=== PATIENT | female | born 1975 ===

== ENCOUNTER 2017-10-16 09:38 | Emergency (ER) | payer BC ==
--- NOTE | 2017-10-16 09:40 | ED PDOC ---
Arrival/HPI - General Historian: Patient <Ibrahima Juan - Last Filed: 10/16/17 13:04> <Abraham Mitchell - Last Filed: 10/16/17 17:00> - General Time Seen by Provider: 10/16/17 09:39 - History of Present Illness Narrative History of Present Illness (Text): 10/16/17 09:39 42 y/o female, pmh including htn and hypothyroidism, nkda, c/o lower suprapubic discomfort for the past 2 days. Aching pain, on and off, associated with lower back pain, no numbness or tingling, 5/10, no chest pain or shortness of breath, no flank pain, no rash, no palpitation, no other medical or psychological complaints. (Ibrahima Juan) Past Medical History - Provider Review Nursing Documentation Reviewed: Yes <Ibrahima Juan - Last Filed: 10/16/17 13:04> - Provider Review Nursing Documentation Reviewed: Yes <Abraham Mitchell - Last Filed: 10/16/17 17:00> Family/Social History - Physician Review Nursing Documentation Reviewed: Yes Family/Social History: Unknown Family HX <Ibrahima Juan - Last Filed: 10/16/17 13:04> Allergies/Home Meds <Ibrahima Juan - Last Filed: 10/16/17 13:04> <Abraham Mitchell - Last Filed: 10/16/17 17:00> Allergies/Adverse Reactions: Allergies No Known Allergies Allergy (Verified 10/16/17 09:50) Home Medications: Home Meds Medication Instructions Recorded Confirmed Levothyroxine 0.05 mg PO DAILY 10/16/17 10/16/17 Lisinopril [Zestril] 5 mg PO DAILY 10/16/17 10/16/17 Review of Systems - Review of Systems Constitutional: absent: Fatigue, Fevers Eyes: absent: Vision Changes ENT: absent: Hearing Changes Respiratory: absent: SOB, Cough Cardiovascular: absent: Chest Pain Gastrointestinal: Other (+suprapubic pain). absent: Abdominal Pain, Nausea, Vomiting Skin: absent: Rash, Pruritis Neurological: absent: Headache, Dizziness Psychiatric: absent: Anxiety, Depression, Suicidal Ideation <Ibrahima Juan - Last Filed: 10/16/17 13:04> Physical Exam Vital Signs Reviewed: Yes Temperature: Afebrile Blood Pressure: Normal Pulse: Regular Respiratory Rate: Normal Appearance: Positive for: Well-Appearing, Non-Toxic, Comfortable Pain Distress: Moderate Mental Status: Positive for: Alert and Oriented X 3 - Systems Exam Head: Present: Atraumatic, Normocephalic Pupils: Present: PERRL Extroacular Muscles: Present: EOMI Conjunctiva: Present: Normal Mouth: Present: Moist Mucous Membranes Neck: Present: Normal Range of Motion Respiratory/Chest: Present: Clear to Auscultation, Good Air Exchange. No: Respiratory Distress, Accessory Muscle Use Cardiovascular: Present: Regular Rate and Rhythm, Normal S1, S2. No: Murmurs Abdomen: Present: Other (+suprapubic tenderness). No: Tenderness, Distention, Peritoneal Signs, Rebound, Guarding Genitourinary/Pelvic Exam: Present: Other (Pt. declined) Back: Present: Normal Inspection. No: CVA Tenderness, Midline Tenderness, Paraspinal Tenderness Upper Extremity: Present: Normal Inspection. No: Cyanosis, Edema Lower Extremity: Present: Normal Inspection. No: Edema Neurological: Present: GCS=15, CN II-XII Intact, Speech Normal Skin: Present: Warm, Dry, Normal Color. No: Rashes Psychiatric: Present: Alert, Oriented x 3, Normal Insight, Normal Concentration <Ibrahima Juan - Last Filed: 10/16/17 13:04> Vital Signs Temp Pulse Resp BP Pulse Ox 10/16/17 13:31 98.1 F 87 17 134/88 98 10/16/17 13:15 87 17 134/88 98 10/16/17 12:09 88 17 139/88 97 10/16/17 09:51 98.4 F 88 18 141/88 99 Medical Decision Making - Lab Interpretations I have reviewed the lab results: Yes - RAD Interpretation Precision Devices Inspector/Tester: Radiologist <Ibrahima Juan - Last Filed: 10/16/17 13:04> <Abraham Mitchell - Last Filed: 10/16/17 17:00> ED Course and Treatment: 10/16/17 10:11 -labs/ua -transvaginal sonogram -IV/toradol -Observe and reassess 10/16/17 13:05 -Urine hcg is negative -Labs are non-significant -UA show +UTI which she admits urinary frequency now. -Transvaginal sonogram show Cystic fluid collection/ cyst interposed between endometrial echo complex and myometrium. Pt. refused repeat sonogram. -Pt. stated that her symptoms resolved with toradol, wants to be discharged home , stated that she has obgyn follow up tomorrow, advised to come back to the ER for further care if pain persist. -Discharge home with motrin, macrobid, bed rest, follow up with your own pmd and obgyn within 2 days, return to the ER for any new or worsening signs or symptoms. (Ibrahima Juan) - Lab Interpretations Lab Results: 10/16/17 10:00 10/16/17 10:00 Lab Results 10/16/17 10:09: Urine Color Light yellow, Urine Appearance Slight-cloudy, Urine pH 6.5, Ur Specific [place] 1.020, Urine Protein Trace H, Urine Glucose (UA) Negative, Urine Ketones Negative, Urine Blood Large H, Urine Nitrate Negative, Urine Bilirubin Negative, Urine Urobilinogen 0.2, Ur Leukocyte Esterase Trace H , Urine RBC 25 - 30, Urine WBC 2 - 5, Ur Epithelial Cells Many, Urine Bacteria Many 10/16/17 10:00: WBC 10.9, RBC 4.17, Hgb 12.2, Hct 36.4, MCV 87.3, MCH 29.3, MCHC 33.5, RDW 14.0, Plt Count 229, MPV 10.8, Gran % 82.1 H, Lymph % (Auto) 13.2 L, [place] % (Auto) 4.0, Eos % (Auto) 0.6 L, Baso % (Auto) 0.1, Gran # 8.93 H , Lymph # (Auto) 1.4, [place] # (Auto) 0.4, Eos # (Auto) 0.1, Baso # (Auto) 0.01 10/16/17 10:00: Sodium 142, Potassium 3.6, Chloride 106, Carbon Dioxide 24, Anion Gap 16, BUN 11, Creatinine 0.5 L, Est GFR ( Amer) > 60, Est GFR ( Non-Af Amer) > 60, Random Glucose 126 H, Calcium 8.8, Total Bilirubin 0.6, AST 28, ALT 36, Alkaline Phosphatase 87, Total Protein 8.1, Albumin 4.4, Globulin 3.7, Albumin/Globulin Ratio 1.2, Lipase 65 - RAD Interpretation Radiology Orders: 10/16/17 09:55 TRANSVAGINAL [US] Stat HISTORY: Ovarian cysts. Negative test (concurrent with this examination). Menstrual status: LMP one 9. COMPARISON: None available. TECHNIQUE: Transvaginal only. Real -time technique with 2D, duplex and color Doppler FINDINGS: UTERUS: Measures 6.6 x 9.3 cm. Normal in size and appearance. ENDOMETRIUM: Cystic fluid collection Inseparable from the endometrial echo complex measuring 1.2 x 1.8 cm. Maximal endometrial thickness 13.5 mm. CERVIX: No cervical abnormality identified. Closed cervix 3.1 cm. RIGHT OVARY: Not visualized LEFT OVARY: Not visualized FREE FLUID: No significant free fluid noted. OTHER FINDINGS: None. IMPRESSION: Cystic fluid collection/ cyst interposed between endometrial echo complex and myometrium. Limitations of the current examination: Nonvisualization of the adnexa. (Ibrahima Juan) - Medication Orders Current Medication Orders: Discontinued Medications Sodium Chloride (Sodium Chloride 0.9%) 1,000 mls @ 100 mls/hr IV .Q10H ZBIGNIEW Last Admin: 10/16/17 10:09 Dose: 100 mls/hr eMAR Start Stop Document 10/16/17 10:09 [facility] (Rec: 10/16/17 10:09 [facility] [id number]) Intravenous Solution Start Date 10/16/17 Start Time 10:09 Ketorolac Tromethamine (Toradol) 30 mg IVP STAT STA Stop: 10/16/17 09:56 Last Admin: 10/16/17 10:09 Dose: 30 mg MAR Pain Assessment Document 10/16/17 10:09 [facility] (Rec: 10/16/17 10:09 [facility] [id number]) Pain Reassessment Is this a pain reassessment? No Sleep Is patient sleeping during reassessment? No Presence of Pain Presence of Pain Yes Location Pain Location Body Site Abdomen Description Intensity of Pain at present 6 IVP Administration Document 10/16/17 10:09 [facility] (Rec: 10/16/17 10:09 [facility] [id number]) Charges for Administration # of IVP Administrations 1 - PA / SUPERVISORY TRAINING SPECIALIST / Resident Statement MD/DO has reviewed & agrees with the documentation as recorded. <Juan,Ibrahima Q - Last Filed: 10/16/17 13:04> - PA / SUPERVISORY TRAINING SPECIALIST / Resident Statement MD/DO has reviewed & agrees with the documentation as recorded. <Shelton MitchellGisellCeferinogiancarlo - Last Filed: 10/16/17 17:00> Disposition/Present on Arrival - Present on Arrival Any Indicators Present on Arrival: No History of DVT/PE: No History of Uncontrolled Diabetes: No Urinary Catheter: No History of Decub. Ulcer: No - Disposition Have Diagnosis and Disposition been Completed?: Yes Disposition Time: 10:11 Patient Plan: Discharge <Ibrahima Juan Q - Last Filed: 10/16/17 13:04> <StephenAnithaJoyce - Last Filed: 10/16/17 17:00> - Disposition Diagnosis: Cystitis Disposition: HOME/ ROUTINE Condition: IMPROVED Additional Instructions: -Discharge home with motrin, macrobid, bed rest, follow up with your own pmd and obgyn within 2 days, return to the ER for any new or worsening signs or symptoms. Prescriptions: Ibuprofen [Motrin Tab] 600 mg PO QID PRN #30 tab PRN Reason: Other Nitrofurantoin Macrocrystals [Macrobid] 100 mg PO BID #14 cap Referrals: Wrad Mooney MD [Primary Care Provider] - Follow up with primary Pérez Alvarez MD [Staff Provider] - Follow up with primary Brandt Lowe MD [Staff Provider] - Follow up with primary Forms: WORK NOTE
[2017-10-16] MEDS ORDERED: Sodium Chloride 0.9% 1,000 ML IV SCH (10:00)
[2017-10-16 10:16] LABS: BASO # 0.01 K/mm3 (0.0-2.0); BASO % 0.1 % (0.0-3.0); EOS # 0.1 (0.0-0.7); EOS % 0.6 % (1.5-5.0); GRAN # 8.93 (1.4-6.5); GRAN % 82.1 % (50.0-68.0); HEMOGLOBIN 12.2 g/dL (12.0-16.0); LYMPH # 1.4 (1.2-3.4); LYMPH % 13.2 % (22.0-35.0); MEAN CELL VOLUME 87.3 fl (80.0-105.0); MEAN CORPUSCULAR HEMOGLOBIN 29.3 pg (25.0-35.0); MEAN CORPUSCULAR HGB CONC 33.5 g/dl (31.0-37.0); MEAN PLATELET VOLUME 10.8 fl (7.0-11.0); MONO # 0.4 (0.1-0.6); RBC 4.17 10^6/uL (3.5-6.1); WHITE BLOOD COUNT 10.9 10^3/ul (4.5-11.0)
[2017-10-16 10:16] LABS: PH,URINE 6.5 (4.7-8.0); URINE APPEARANCE SLIGHT-CLOUDY (CLEAR); URINE BILIRUBIN NEGATIVE (NEGATIVE); URINE BLOOD LARGE (NEGATIVE); URINE COLOR LIGHT YELLOW (YELLOW); URINE GLUCOSE (UA) NEGATIVE (NEGATIVE); URINE LEUKOCYTE ESTERASE TRACE Leu/uL (NEGATIVE); URINE PROTEIN TRACE mg/dL (<30 mg/dL); URINE UROBILINOGEN 0.2 E.U./dL (<1 E.U./dL)
[2017-10-16 10:19] LABS: URINE BACTERIA MANY (NEG); URINE EPITHELIAL CELLS MANY /hpf (0-5); URINE RBC 25 - 30 /hpf (0-2)
[2017-10-16 10:30] LABS: ALB/GLOB RATIO 1.2 (1.1-1.8); ALBUMIN 4.4 g/dL (3.0-4.8); ALT/SGPT 36 U/L (7-56); AST/SGOT 28 U/L (14-36); BLOOD UREA NITROGEN 11 mg/dL (7-21); CALCIUM 8.8 mg/dL (8.4-10.5); GFR AFRICAN-AMERICAN > 60; GFR NON-AFRICAN AMERICAN > 60; LIPASE 65 U/L (23-300)
[2017-10-16 12:10] VITALS: RESP 17
--- NOTE | 2017-10-16 12:40 | US ---
HISTORY: Ovarian cysts. Negative test (concurrent with this examination). Menstrual status: LMP one 9. COMPARISON: None available. TECHNIQUE: Transvaginal only. Real -time technique with 2D, duplex and color Doppler FINDINGS: UTERUS: Measures 6.6 x 9.3 cm. Normal in size and appearance. ENDOMETRIUM: Cystic fluid collection Inseparable from the endometrial echo complex measuring 1.2 x 1.8 cm. Maximal endometrial thickness 13.5 mm. CERVIX: No cervical abnormality identified. Closed cervix 3.1 cm. RIGHT OVARY: Not visualized LEFT OVARY: Not visualized FREE FLUID: No significant free fluid noted. OTHER FINDINGS: None. IMPRESSION: Cystic fluid collection/ cyst interposed between endometrial echo complex and myometrium. Limitations of the current examination: Nonvisualization of the adnexa.
[2017-10-16 13:16] VITALS: BP 134/88; PULSE 87; O2SAT 98
[2017-10-16 13:32] VITALS: TEMP 98.1
== END 2017-10-16 13:36 | disposition home or self-care (01) ==
LOC: ED 09:38
DX: N30.90 Cystitis, unspecified without hematuria (principal)
CPT/HCPCS: 76830; 80053; 81001; 83690; 85025; 87086; 96374; 99284; J1885; J7040

== ENCOUNTER 2018-01-10 11:19 | Emergency (ER) | payer BC ==
[2018-01-10 11:26] VITALS: BMI 30.3
[2018-01-10 11:27] VITALS: TEMP 98
[2018-01-10] MEDS ORDERED: Morphine 2 mg/ml ISec IVP STA (11:51)
[2018-01-10] MEDS ORDERED: Sodium Chloride 0.9% 1,000 ML IV STA (11:52)
[2018-01-10 11:59] LABS: URINE APPEARANCE CLEAR (CLEAR); URINE BILIRUBIN NEGATIVE (NEGATIVE); URINE BLOOD MODERATE (NEGATIVE); URINE COLOR YELLOW (YELLOW); URINE GLUCOSE (UA) NEGATIVE (NEGATIVE); URINE LEUKOCYTE ESTERASE NEGATIVE Leu/uL (NEGATIVE); URINE PROTEIN NEGATIVE mg/dL (<30 mg/dL); URINE UROBILINOGEN 0.2 E.U./dL (<1 E.U./dL)
--- NOTE | 2018-01-10 12:07 | ED PDOC ---
Arrival/HPI - General Chief Complaint: Abdominal Pain Time Seen by Provider: 01/10/18 11:47 Historian: Patient, Family (niece translates in nauruan for patient) EM Caveat: Acuity of Condition - History of Present Illness Narrative History of Present Illness (Text): 01/10/18 11:45 A 42 y/o F w/ h/o fibroids s/p myomectomy, hypertension and hypothyroidism, presents to the emergency department complaining of cramping lower abdominal pain radiating around to the lower back. Patient reports pain as cramping sensation. Notes also experiencing some nausea associated with the pain. She states pain also sometimes radiates down left leg. Patient denies nausea, vomiting, diarrhea, chest pain, shortness of breath, any urinary symptoms, or any other complaints at this time. LMP was 12/06/17. PMD: Dr. Wrad Mooney 01/11/18 11:01 Time/Duration: Prior to Arrival Symptom Onset: Sudden Symptom Course: Worsening Quality: Aching, Cramping Severity Level: 9 Activities at Onset: Rest Context: Home Past Medical History - Provider Review Nursing Documentation Reviewed: Yes - Travel History Have you recently traveled outside [place] w/in the past 3 mons?: Yes If Yes, travel location?: October; [place] - Infectious Disease Hx of Infectious Diseases: None - Reproductive Menopause: No Currently : No - Cardiac Hx Cardiac Disorders: Yes Hx Hypertension: Yes - Pulmonary Hx Respiratory Disorders: No (denies) - Neurological Hx Neurological Disorder: No (denies) - HEENT Hx HEENT Disorder: (denies) - Renal Hx Renal Disorder: (denies) - Endocrine/Metabolic Hx Endocrine Disorders: Yes Hx Hypothyroidism: Yes - Hematological/Oncological Hx Blood Disorders: (denies) - Integumentary Hx Dermatological Disorder: (denies) - Musculoskeletal/Rheumatological Hx Musculoskeletal Disorders: (denies) - Gastrointestinal Hx Gastrointestinal Disorders: (denies) - Genitourinary/Gynecological Hx Genitourinary Disorders: Yes Other/Comment: fibroids - Psychiatric Hx Psychophysiologic Disorder: (denies) Hx Substance Use: No - Surgical History Hx Thyroidectomy: Yes - Anesthesia Hx Anesthesia: Yes Family/Social History - Physician Review Nursing Documentation Reviewed: Yes Family/Social History: No Known Family HX Smoking Status: Never Smoked Hx Alcohol Use: No Hx Substance Use: No Allergies/Home Meds Allergies/Adverse Reactions: Allergies No Known Allergies Allergy (Verified 10/16/17 09:50) Home Medications: Home Meds Medication Instructions Recorded Confirmed Levothyroxine 0.05 mg PO DAILY 10/16/17 10/16/17 Lisinopril [Zestril] 5 mg PO DAILY 10/16/17 10/16/17 Review of Systems - Physician Review All systems were reviewed & negative as marked: Yes - Review of Systems Constitutional: absent: Fevers Respiratory: absent: SOB Cardiovascular: absent: Chest Pain Gastrointestinal: Abdominal Pain (radiating around to lumbar region), Nausea. absent: Diarrhea, Vomiting Genitourinary Female: absent: Dysuria, Frequency, Hematuria, Urine Output Changes Physical Exam Vital Signs Reviewed: Yes Vital Signs Temp Pulse Resp BP Pulse Ox 01/10/18 14:13 99 01/10/18 14:11 97 H 17 134/75 99 01/10/18 13:49 97 H 17 135/71 98 01/10/18 11:25 98 F 98 H 20 155/87 H 98 Temperature: Afebrile Blood Pressure: Normal Pulse: Regular Respiratory Rate: Normal Appearance: Positive for: Well-Appearing Pain Distress: None Mental Status: Positive for: Alert and Oriented X 3 - Systems Exam Head: Present: Atraumatic, Normocephalic Pupils: Present: PERRL Extroacular Muscles: Present: EOMI Conjunctiva: Present: Normal Mouth: Present: Moist Mucous Membranes Neck: Present: Normal Range of Motion Respiratory/Chest: Present: Clear to Auscultation, Good Air Exchange. No: Respiratory Distress, Accessory Muscle Use Cardiovascular: Present: Regular Rate and Rhythm, Normal S1, S2. No: Murmurs Abdomen: Present: Tenderness (tenderness to palpation to the suprapubic region) Back: Present: Normal Inspection Upper Extremity: Present: Normal Inspection. No: Cyanosis, Edema Lower Extremity: Present: Normal Inspection. No: Edema Neurological: Present: GCS=15, CN II-XII Intact, Speech Normal Skin: Present: Warm, Dry, Normal Color. No: Rashes Psychiatric: Present: Alert, Oriented x 3, Normal Insight, Normal Concentration Medical Decision Making ED Course and Treatment: 01/10/18 11:50 Impression: 42 year old female with abdominal cramping pain radiating to back and sometimes down left leg. Although the patient has been experiencing similar abdominal pain for an extended amount of time, the severity of this epsiode raises suspicion for acute pathology such as ectopic , which we will rule out. She will be treated with analgesics and monitored for any changes in disposition. Differential Diagnoses Includes but is Not Limited to: Ectopic Ovarian Cyst Endometriosis Plan: -- Transvaginal Ultrasound -- Labs -- Urinalysis -- Morphine -- IV Fluids -- Urine Culture -- Reassess and disposition Prior Visits: Notes and results from previous visits were reviewed. Patient was last seen here in the emergency department on 10/16/2017 for lower suprapubic abdominal discomfort. Patient was discharged home. Progress Notes: 01/10/2018 13:00 Patient offered pelvic exam in which she desired to defer to the her site medical director. She is comfortable at this time. Transvaginal Ultrasound IMPRESSION: Complex fluid in the endometrial cavity, likely old blood products. Otherwise unremarkable. Ovaries not visualized. Dictator: Stan Gunter MD 01/10/2018 1320 Findings of ultrasound discussed with patient who states she has an upcoming appointment with her site medical director this week. Highlighted the importance of immediate follow up with site medical director and explaining symptoms in detail for further evaluation. She demonstrates understanding. Scripts provided. She is stable for discharge. - Lab Interpretations Lab Results: 01/10/18 12:00 01/10/18 12:00 Lab Results 01/10/18 12:00: Beta HCG, Quant < 2.39 01/10/18 12:00: Sodium 141, Potassium 3.7, Chloride 103, Carbon Dioxide 26, Anion Gap 16, BUN 10, Creatinine 0.5 L, Est GFR ( Amer) > 60, Est GFR ( Non-Af Amer) > 60, Random Glucose 107, Calcium 9.0, Total Bilirubin 0.5, AST 25 , ALT 24, Alkaline Phosphatase 82, Total Protein 7.9, Albumin 4.2, Globulin 3.7 , Albumin/Globulin Ratio 1.1 01/10/18 12:00: WBC 11.6 H, RBC 4.09, Hgb 11.8 L, Hct 35.4 L, MCV 86.6, MCH 28.9 , MCHC 33.3, RDW 13.8, Plt Count 235, MPV 10.8, Gran % 87.5 H, Lymph % (Auto) 8.6 L, [place] % (Auto) 3.3, Eos % (Auto) 0.4 L, Baso % (Auto) 0.2, Gran # 10.18 H , Lymph # (Auto) 1.0 L, [place] # (Auto) 0.4, Eos # (Auto) 0.1, Baso # (Auto) 0.02 01/10/18 11:45: Urine Color Yellow, Urine Appearance Clear, Urine pH 7.0, Ur Specific [place] 1.010, Urine Protein Negative, Urine Glucose (UA) Negative, Urine Ketones Negative, Urine Blood Moderate H, Urine Nitrate Negative, Urine Bilirubin Negative, Urine Urobilinogen 0.2, Ur Leukocyte Esterase Negative, Urine RBC 2 - 5, Urine WBC 1 - 3, Ur Epithelial Cells 1 - 3, Amorphous Sediment Few, Urine Bacteria Few I have reviewed the lab results: Yes - RAD Interpretation Radiology Orders: 01/10/18 11:50 TRANSVAGINAL [US] Stat - Medication Orders Current Medication Orders: Discontinued Medications Sodium Chloride (Sodium Chloride 0.9%) 1,000 mls @ 999 mls/hr IV .Q1H1M STA Stop: 01/10/18 12:52 Last Admin: 01/10/18 12:01 Dose: 999 mls/hr eMAR Start Stop Document 01/10/18 12:01 (Rec: 01/10/18 12:01 [email or web address]) Intravenous Solution Start Date 01/10/18 Start Time 12:01 End Date 01/10/18 End time 13:02 Total Infusion Time 61 Morphine Sulfate (Morphine) 2 mg IVP STAT STA Stop: 01/10/18 11:52 Last Admin: 01/10/18 12:06 Dose: 2 mg MAR Pain Assessment Document 01/10/18 12:06 [facility] (Rec: 01/10/18 12:06 [email or web address]) Pain Reassessment Is this a pain reassessment? Yes Sleep Is patient sleeping during reassessment? No Presence of Pain Presence of Pain Yes IVP Administration Document 01/10/18 12:06 [facility] (Rec: 01/10/18 12:06 [email or web address]) Charges for Administration # of IVP Administrations 1 Ondansetron HCl (Zofran Inj) 4 mg IVP STAT STA Stop: 01/10/18 12:07 Last Admin: 01/10/18 12:07 Dose: - Scribe Statement The provider has reviewed the documentation as recorded by the Melba Goldberg Provider Scribe Provider Scribe Attestation: All medical record entries made by the Melba were at my direction and personally dictated by me. I have reviewed the chart and agree that the record accurately reflects my personal performance of the history, physical exam, medical decision making, and the department course for this patient. I have also personally directed, reviewed, and agree with the discharge instructions and disposition. Disposition/Present on Arrival - Present on Arrival Any Indicators Present on Arrival: No History of DVT/PE: No History of Uncontrolled Diabetes: No Urinary Catheter: No History of Decub. Ulcer: No History Surgical Site Infection Following: None - Disposition Have Diagnosis and Disposition been Completed?: Yes Diagnosis: Pelvic pain Disposition: HOME/ ROUTINE Disposition Time: 13:41 Patient Plan: Discharge Condition: IMPROVED Discharge Instructions (ExitCare): Endometriosis, Chronic Pelvic Pain in Women Print Language: BERMUDIAN Prescriptions: Ibuprofen [Motrin Tab] 800 mg PO Q6H PRN #24 tab PRN Reason: Pain, Moderate (4-7) Ondansetron ODT [Zofran ODT] 4 mg PO Q12 2 Days #4 odt Referrals: Ward Mooney MD [Primary Care Provider] - Follow up with primary Forms: [employer] (Peruvian)
[2018-01-10 12:13] LABS: BASO # 0.02 K/mm3 (0.0-2.0); BASO % 0.2 % (0.0-3.0); EOS # 0.1 (0.0-0.7); EOS % 0.4 % (1.5-5.0); GRAN # 10.18 (1.4-6.5); GRAN % 87.5 % (50.0-68.0); HEMOGLOBIN 11.8 g/dL (12.0-16.0); LYMPH % 8.6 % (22.0-35.0); MEAN CELL VOLUME 86.6 fl (80.0-105.0); MEAN CORPUSCULAR HEMOGLOBIN 28.9 pg (25.0-35.0); MEAN CORPUSCULAR HGB CONC 33.3 g/dl (31.0-37.0); MEAN PLATELET VOLUME 10.8 fl (7.0-11.0); MONO # 0.4 (0.1-0.6); MONO % 3.3 % (1.0-6.0); RBC 4.09 10^6/uL (3.5-6.1); RED CELL DISTRIBUTION WIDTH 13.8 % (11.5-14.5); WHITE BLOOD COUNT 11.6 10^3/ul (4.5-11.0)
[2018-01-10 12:21] LABS: URINE BACTERIA FEW (NEG)
[2018-01-10 12:22] LABS: URINE AMORPHOUS SEDIMENT FEW
[2018-01-10 12:23] LABS: ALB/GLOB RATIO 1.1 (1.1-1.8); ALBUMIN 4.2 g/dL (3.0-4.8); ALT/SGPT 24 U/L (7-56); AST/SGOT 25 U/L (14-36); BLOOD UREA NITROGEN 10 mg/dL (7-21); GFR AFRICAN-AMERICAN > 60; GFR NON-AFRICAN AMERICAN > 60
--- NOTE | 2018-01-10 13:02 | US ---
Date of service: 01/10/2018 HISTORY: h/o fibroids w/ pelvic pain COMPARISON: 10/16/2017 TECHNIQUE: Transabdominal and transvaginal FINDINGS: UTERUS: Measures 12.0 x 6.2 x 8.2 cm. Normal in size and appearance. No fibroid or other mass lesion seen. ENDOMETRIUM: Measures 4-5 mm in single wall thickness. The cavity is distended by complex fluid with low to intermediate level echoes. Retrospectively, on prior examination there was likely acute/subacute hemorrhage within the endometrial cavity, with a fluid/ fluid level. The current endometrial cavity contents likely reflects old blood products. There is no endometrial mass identified. . CERVIX: No cervical abnormality identified. RIGHT OVARY: Not visualized LEFT OVARY: Not visualized FREE FLUID: No significant free fluid noted. OTHER FINDINGS: None. IMPRESSION: Complex fluid in the endometrial cavity, likely old blood products. Otherwise unremarkable. Ovaries not visualized.
[2018-01-10 13:50] VITALS: PULSE 97; RESP 17
[2018-01-10 14:13] VITALS: BP 134/75; O2SAT 99
== END 2018-01-10 14:13 | disposition home or self-care (01) ==
LOC: ED 11:19
DX: R10.2 Pelvic and perineal pain (principal); I10 Essential (primary) hypertension
CPT/HCPCS: 76830; 80053; 81001; 84702; 85025; 87086; 96361; 96374; 99285; J2270; J2405; J7030

== ENCOUNTER 2018-02-03 04:58 | Emergency (ER) | payer BC ==
[2018-02-03 05:08] VITALS: BMI 30.2
[2018-02-03 05:13] VITALS: BP 127/78; PULSE 95; RESP 19; TEMP 98.4
[2018-02-03] MEDS ORDERED: oxyCODONE 5 mg Immediate Release Tab PO STA (05:35)
--- NOTE | 2018-02-03 05:59 | ED PDOC ---
Arrival/HPI - General Chief Complaint: Abdominal Pain Time Seen by Provider: 02/03/18 04:59 Historian: Patient - History of Present Illness Narrative History of Present Illness (Text): 02/03/18 05:56 43 year old female, with a history of uterine fibroids, presents to the emergency department with supra-pubic abdominal pain. Patient states she is schedule for a hysterectomy on 02/07. Patient denies any fever, chills, headache, dizziness, chest pain, shortness of breath, cough, nausea, vomiting, diarrhea, back pain, neck pain, urinary/bowel changes, or any other complaint. Time/Duration: Prior to Arrival Past Medical History - Provider Review Nursing Documentation Reviewed: Yes - Infectious Disease Hx of Infectious Diseases: None - Cardiac Hx Cardiac Disorders: Yes Hx Hypertension: Yes - Pulmonary Hx Respiratory Disorders: No (denies) - Neurological Hx Neurological Disorder: No (denies) - HEENT Hx HEENT Disorder: (denies) - Renal Hx Renal Disorder: (denies) - Endocrine/Metabolic Hx Endocrine Disorders: Yes Hx Hypothyroidism: Yes - Hematological/Oncological Hx Blood Disorders: (denies) - Integumentary Hx Dermatological Disorder: (denies) - Musculoskeletal/Rheumatological Hx Musculoskeletal Disorders: (denies) - Gastrointestinal Hx Gastrointestinal Disorders: (denies) - Genitourinary/Gynecological Hx Genitourinary Disorders: Yes Other/Comment: fibroids - Psychiatric Hx Psychophysiologic Disorder: (denies) Hx Substance Use: No - Surgical History Hx Thyroidectomy: Yes - Anesthesia Hx Anesthesia: Yes Family/Social History - Physician Review Nursing Documentation Reviewed: Yes Family/Social History: No Known Family HX Smoking Status: Never Smoked Hx Alcohol Use: No Hx Substance Use: No Allergies/Home Meds Allergies/Adverse Reactions: Allergies No Known Allergies Allergy (Verified 02/03/18 05:09) Home Medications: Home Meds Medication Instructions Recorded Confirmed Ergocalciferol (Vitamin D2) 50,000 unit PO QWK 02/03/18 02/03/18 [Vitamin D2] Levothyroxine [Synthroid] 50 mcg PO DAILY 02/03/18 02/03/18 Lisinopril [Zestril] 5 mg PO DAILY 02/03/18 02/03/18 Ondansetron [Zofran] 4 mg PO Q6 PRN 02/03/18 02/03/18 Review of Systems - Physician Review All systems were reviewed & negative as marked: Yes - Review of Systems Constitutional: Normal. absent: Fevers, Night Sweats Eyes: Normal ENT: Normal Respiratory: Normal. absent: SOB, Cough Cardiovascular: Normal. absent: Chest Pain Gastrointestinal: Abdominal Pain. absent: Diarrhea, Nausea, Vomiting Genitourinary Female: Normal. absent: Urine Output Changes Musculoskeletal: Normal. absent: Back Pain, Neck Pain Skin: Normal Neurological: Normal. absent: Headache, Dizziness Endocrine: Normal Hemo/Lymphatic: Normal Psychiatric: Normal Physical Exam Vital Signs Reviewed: Yes Vital Signs Temp Pulse Resp BP Pulse Ox 02/03/18 05:09 98.4 F 95 H 19 127/78 98 Temperature: Afebrile Blood Pressure: Normal Pulse: Regular Respiratory Rate: Normal Appearance: Positive for: Well-Appearing, Non-Toxic, Comfortable Pain Distress: None Mental Status: Positive for: Alert and Oriented X 3 - Systems Exam Head: Present: Atraumatic, Normocephalic Pupils: Present: PERRL Extroacular Muscles: Present: EOMI Conjunctiva: Present: Normal Mouth: Present: Moist Mucous Membranes Neck: Present: Normal Range of Motion Respiratory/Chest: Present: Clear to Auscultation, Good Air Exchange. No: Respiratory Distress, Accessory Muscle Use Cardiovascular: Present: Regular Rate and Rhythm, Normal S1, S2. No: Murmurs Abdomen: Present: Tenderness (Mild suprapubic tenderness) Back: Present: Normal Inspection Upper Extremity: Present: Normal Inspection. No: Cyanosis, Edema Lower Extremity: Present: Normal Inspection. No: Edema Neurological: Present: GCS=15, CN II-XII Intact, Speech Normal Skin: Present: Warm, Dry, Normal Color. No: Rashes Psychiatric: Present: Alert, Oriented x 3, Normal Insight, Normal Concentration Medical Decision Making ED Course and Treatment: 02/03/18 06:00 Impression: 43 year old female presents with supra-pubic abdominal pain. Plan: -- Toradol -- Oxycodone -- Reassess and disposition Prior Visits: Notes and results from previous visits were reviewed. Progress Notes: - Medication Orders Current Medication Orders: Discontinued Medications Ketorolac Tromethamine (Toradol) 60 mg IM STAT STA Stop: 02/03/18 05:36 Last Admin: 02/03/18 05:39 Dose: 60 mg MAR Pain Assessment Document 02/03/18 05:39 SS (Rec: 02/03/18 05:40 SS [id number]) Pain Reassessment Is this a pain reassessment? No Sleep Is patient sleeping during reassessment? No Presence of Pain Presence of Pain Yes Description Pain Behavior Moaning Grasping Site IM Administration Charges Document 02/03/18 05:39 SS (Rec: 02/03/18 05:40 SS [id number]) Injection Site MAR Injection Site Left Deltoid Charges for Administration # of IM Administrations 1 Oxycodone HCl (Oxycodone Immediate Release Tab) 5 mg PO STAT STA Stop: 02/03/18 05:36 Last Admin: 02/03/18 05:45 Dose: 5 mg MAR Pain Assessment Document 02/03/18 05:45 SS (Rec: 02/03/18 05:45 SS [id number]) Pain Reassessment Is this a pain reassessment? No Sleep Is patient sleeping during reassessment? No Presence of Pain Presence of Pain Yes - Scribe Statement The provider has reviewed the documentation as recorded by the Melba Saucedo Provider Scribe Attestation: All medical record entries made by the Scribe were at my direction and personally dictated by me. I have reviewed the chart and agree that the record accurately reflects my personal performance of the history, physical exam, medical decision making, and the department course for this patient. I have also personally directed, reviewed, and agree with the discharge instructions and disposition. Disposition/Present on Arrival - Present on Arrival Any Indicators Present on Arrival: No History of DVT/PE: No History of Uncontrolled Diabetes: No Urinary Catheter: No History of Decub. Ulcer: No History Surgical Site Infection Following: None - Disposition Have Diagnosis and Disposition been Completed?: Yes Diagnosis: Uterine fibroid Disposition: HOME/ ROUTINE Disposition Time: 05:20 Patient Problems: Current Active Problems Problem Status Onset Uterine fibroid Acute Condition: GOOD Discharge Instructions (ExitCare): Uterine Fibroids (DC) Print Language: CITIZEN OF [place] Additional Instructions: MARISA RAMON, thank you for letting us take care of you today. Your provider was Keith Ho DO and you were treated for ABDOMINAL PAIN. The emergency medical care you received today was directed at your acute symptoms. If you were prescribed any medication, please fill it and take as directed. It may take several days for your symptoms to resolve. Return to the Emergency Department if your symptoms worsen, do not improve, or if you have any other problems. Please contact your doctor or call one of the physicians/clinics you have been referred to that are listed on the Patient Visit Information form that is included in your discharge packet. Bring any paperwork you were given at discharge with you along with any medications you are taking to your follow up visit. Our treatment cannot replace ongoing medical care by a primary care provider outside of the emergency department. Thank you for allowing the [facility] team to be part of your care today. Follow up with your [facility] doctor as scheduled for your uterine fibroids. MARISA RAMON, kirt por dejarnos atenderlo theresa. [place] proveedor fue Keith Passafaro DO y usted fue tratado por DOLOR ABDOMINAL. La atencin m dica de emergencia que recibi hoy estaba dirigida a katerine sntomas agudos. Si le prescribieron algn medicamento, llnelo y tome segn las indicaciones. Katerine s ntomas pueden tardar varios pandey en resolverse. Regrese al Departamento de Emergencia si katerine sntomas empeoran, no mejoran o si tiene algn otro problema. Comunquese con costa mdico o llame a marissa de los mdicos / clnicas a los que pyle sido referido que figura en el formulario de Informacin de visita del paciente que se incluye en costa paquete de erin. Traiga todos los documentos que recibi al momento del erin junto con los medicamentos que est tomando en costa visita de seguimiento. Nuestro tratamiento no puede reemplazar la atencin mdica en curso por un proveedor de atencin primaria fuera del departamento de emergencia. Kirt por permitir que el equipo de [facility] sea parte de costa cuidado hoy. Maxi un seguimiento con costa mdico gineclogo segn lo programado para katerine fibromas uterinos. Prescriptions: traMADol [Ultram] 50 mg PO Q8 PRN #15 tab PRN Reason: Pain, Severe (8-10) Forms: [employer] (Indonesian)
[2018-02-03 06:48] VITALS: O2SAT 99
== END 2018-02-03 06:47 | disposition home or self-care (01) ==
LOC: ED 04:58
DX: D25.9 Leiomyoma of uterus, unspecified (principal); I10 Essential (primary) hypertension; E03.9 Hypothyroidism, unspecified
CPT/HCPCS: 96372; 99283; J1885